=== PATIENT | female | born 1960 | race Caucasian/White ===

== ENCOUNTER 2017-12-10 08:00 | Day surgery (SDC) | payer OTHER | END 2017-12-10 11:50 | disposition home or self-care (01) | LOC: AMB-ENDOS 08:00 | DX: K57.30 Diverticulosis of large intestine without perforation or abscess without bleeding (principal); K64.8 Other hemorrhoids ==

== ENCOUNTER 2020-10-11 11:55 | Day surgery (SDC) | payer OTHER | END 2020-10-11 16:15 | disposition home or self-care (01) | LOC: AMB-ENDOS 11:55 | PROVIDERS: ATTEND Surgery | DX: D12.0 Benign neoplasm of cecum (principal); Z20.822 Contact with and (suspected) exposure to COVID-19 ==